=== PATIENT | male | born 1985 | race Caucasian/White ===

== ENCOUNTER 2019-12-22 06:59 | Day surgery (SDC) | payer OTHER ==
[~2019-12-22] VITALS: Ht 180.3 cm; Wt 83.3 kg
[2019-12-22 07:16] VITALS: BP 130/74; PULSE 72; TEMP 98.2
[2019-12-22 09:15] VITALS: BP 117/75; PULSE 62; TEMP 98.3
--- NOTE | 2019-12-22 09:15 | NUR ---
Patient arrives to [facility] [address] via cart, accompanied by COMPUTER SCIENCE INSTRUCTOR and CORROSION ENGINEER. He is alert and oriented, lying in the bed. He denies pain or nausea. Monitoring is applied - VSS and WNL on room air. Lights dimmed for comfort, call light in reach.
[2019-12-22 09:30] VITALS: BP 107/69; PULSE 56
--- NOTE | 2019-12-22 09:30 | NUR ---
Patient is resting comfortably. Offered and receives coffee, water, and a muffin to eat. He is sitting up in bed. VSS and WNL on room air.
[2019-12-22 09:45] VITALS: BP 122/72; PULSE 56
--- NOTE | 2019-12-22 09:45 | NUR ---
Resting comfortably in his room. Patient is tolerating PO well.
[2019-12-22 10:00] VITALS: BP 118/67; PULSE 59
--- NOTE | 2019-12-22 10:02 | NUR ---
Patient's is contacted for pickup. She is available in about 30 minutes and will text the patient when she arrives.
--- NOTE | 2019-12-22 10:30 | NUR ---
Discharge criteria has been met. Discharge instructions are discussed. He denies any questions and verbalizes understanding. PIV is removed with catheter intact and hemostasis achieved. His is going to notify him when she arrives for pickling machine operator. He changes to his clothing independently, is given more coffee, and is watching TV while he waits.
--- NOTE | 2019-12-22 11:26 | NUR ---
Patient is escorted to the exit via wheelchair by staff. He is discharged to home with ride in private vehicle at 1126.
== END 2019-12-22 11:26 | disposition home or self-care (01) ==
LOC: SDCO 06:59
DX: K62.5 Hemorrhage of anus and rectum (principal); K64.2 Third degree hemorrhoids; Z79.899 Other long term (current) drug therapy; Z20.828 Contact with and (suspected) exposure to other viral communicable diseases; Z53.8 Procedure and treatment not carried out for other reasons
CPT/HCPCS: J2250; J2405; J2704; J3010; J7120

== ENCOUNTER 2020-01-19 08:11 | Day surgery (SDC) | payer OTHER ==
[~2020-01-19] VITALS: Ht 180.3 cm; Wt 83.6 kg
[2020-01-19] VITALS (7 sets, daily range): BP systolic 120–142; BP diastolic 69–85; PULSE 47–58; TEMP 97.8–97.9
[2020-01-19] MEDS ORDERED: NORCO 325 MG-51 TAB PO (09:21)
--- NOTE | 2020-01-19 09:55 | NUR ---
Returns to room 7 per cart and is awake and alert. IV fluids infusing and site free of redness. Patient denies pain or nausea. Temp 97.8 and room air sats 100%. 4x4 dressing dry. Taking water and coffee to drink. Siderails up x2 and call light in reach.
--- NOTE | 2020-01-19 10:10 | NUR ---
Continues to deny pain or nausea.
--- NOTE | 2020-01-19 10:25 | NUR ---
Eating muffin, toast, and sipping on water and coffee. Continues to deny pain or nausea.
--- NOTE | 2020-01-19 10:40 | NUR ---
Resting without complaints of pain or nausea. IV fluids infusing. Continues to deny pain or nausea.
--- NOTE | 2020-01-19 10:55 | NUR ---
Tolerated muffin and toast. Tolerated fluids. Continues to deny pain or nausea.
--- NOTE | 2020-01-19 11:15 | NUR ---
IV to INT and and assisted up to the bathroom and gait steady. Able to void and returns to room. INT needle discontinued and patient dresses self.
--- NOTE | 2020-01-19 11:30 | NUR ---
Dismissal instructions given and signed. Patient dismissed to home driven by spouse and taken to the front door per wheelchair by Jessica RIVERA with dismissal instructions in hand.
== END 2020-01-19 11:30 | disposition home or self-care (01) ==
LOC: SDCO 08:11
DX: K64.2 Third degree hemorrhoids (principal)
CPT/HCPCS: J0690; J1100; J1885; J2405; J2704; J3010; J7120

== ENCOUNTER → 2020-09-03 | Outpatient (CLI) | payer OTHER ==
[~2020-09-03] MED LIST: NORCO 325 MG-51 TAB PO
== END ==
LOC: COL.RAD 09:52
DX: K21.9 Gastro-esophageal reflux disease without esophagitis (principal)

== ENCOUNTER 2021-11-07 06:00 | Emergency (ER) | payer OTHER ==
[~2021-11-07] VITALS: Ht 180.3 cm; Wt 84.1 kg
[2021-11-07 06:34] LABS: COLLECTION METHOD CLEAN CATCH
[2021-11-07] MEDS ORDERED: PROTONIX 40MG T40 MG PO (06:34)
[2021-11-07 06:37] LABS: BASO % 0.4 % (0.0-2.0); EOS # 0.1 K/mm3 (0.0-0.7); EOS % 1.3 % (0.0-4.0); GRAN # 2.7 K/mm3 (1.4-6.5); GRAN % 50.3 % (42.2-75.2); HEMATOCRIT 44.7 % (42.0-52.0); HEMOGLOBIN 16.7 g/dl (13.5-18.0); LYMPH # 2.2 K/mm3 (1.2-3.4); LYMPH % 39.5 % (20.0-51.0); MEAN CELL VOLUME 90 fl (80.0-100.0); MEAN CORPUSCULAR HEMOGLOBIN 34 pg (27-31); MEAN CORPUSCULAR HGB CONC 37 g/dl (33.0-37.0); MONO # 0.5 K/mm3 (0.1-0.6); MONO % 8.3 % (1.7-9.3); PLATELET COUNT 170 K/mm3 (130-400); RED BLOOD COUNT 4.95 M/mm3 (4.20-5.60); REDCELL DISTRIBUTION WIDTH-CV 12.3 % (11.5-14.5)
[2021-11-07 06:43] LABS: MUCOUS Present (NOT PRESENT); PH 7 (5-8); SQUAMOUS EPITHELIAL None Seen /hpf (0-10); URINE APPEARANCE Clear (CLEAR/HAZY); URINE BACTERIA None Seen /hpf (NONE SEEN); URINE BLOOD 1+ (NEGATIVE); URINE COLOR Yellow (YELLOW); URINE GLUCOSE Negative (NEGATIVE); URINE KETONE Negative (NEGATIVE); URINE NITRATE Negative (NEGATIVE); URINE PROTEIN(semi-quant) Negative (NEGATIVE); URINE UROBILINOGEN Negative (NEGATIVE)
[2021-11-07 07:01] LABS: ALBUMIN 4.2 gm/dL (3.5-5.0); CALCIUM 9.4 mg/dL (8.4-10.2); CREATININE, serum 1.02 mg/dL (0.72-1.25); POTASSIUM 3.9 mmol/L (3.5-4.5); TOTAL PROTEIN 6.7 gm/dL (6.2-8.1)
[2021-11-07 08:09] VITALS: BP 126/86; PULSE 67
== END 2021-11-07 08:07 | disposition home or self-care (01) ==
LOC: COL.ER 06:00
PROVIDERS: Emergency Medicine
DX: R10.31 Right lower quadrant pain (principal); R30.0 Dysuria; Z98.890 Other specified postprocedural states
CPT/HCPCS: Q9967

== ENCOUNTER 2023-05-12 07:02 | Day surgery (SDC) | payer OTHER ==
[~2023-05-12] VITALS: Ht 180.3 cm; Wt 84.4 kg
[~2023-05-12 07:02] MED LIST changes: +LR 1,000 ML IV SCH; +Ondansetron 4 MG/2 ML VIAL IV PRN; +PROTONIX 40MG T40 MG PO
[2023-05-12 07:23] VITALS: BP 145/88; PULSE 62; TEMP 97.3
[2023-05-12 09:15] VITALS: BP 123/89; PULSE 66; TEMP 97
[2023-05-12 09:30] VITALS: BP 115/88; PULSE 68
--- NOTE | 2023-05-12 09:48 | NUR ---
0915-Pt arrived via cart to [facility] , pt ambulated with assistance to recliner. Warm blanket provided. Vital signs taken, vss. Pt denies nausea or pain at this time. Report obtained from MIGUEL GREEN. Pt offered po intake at this time. Update provided to patient and/or family. 924-Pt tolerating po intake well, denies complaints. VSS. 924-Provider at bedside, procedure and plan of care reviewed, questions invited. [id number]. Discharge instructions reviewed with pt, questions invited. IV site discontinued, tip intact. Pressure held and bandage applied. Pt dressed into personal clothing. 45-Pt discharged home to [facility] via wheelchair, accompanied by family. All belongings and discharge instructions sent with pt.
== END 2023-05-12 09:45 | disposition home or self-care (01) ==
LOC: SDCO 07:02
DX: K59.00 Constipation, unspecified (principal); K62.89 Other specified diseases of anus and rectum; K64.4 Residual hemorrhoidal skin tags; R11.10 Vomiting, unspecified; R14.2 Eructation; R14.0 Abdominal distension (gaseous); Z80.0 Family history of malignant neoplasm of digestive organs; Z79.899 Other long term (current) drug therapy
CPT/HCPCS: J2704; J7120

== ENCOUNTER → 2023-12-09 | Outpatient (CLI) | payer OTHER ==
[~2023-12-09] MED LIST changes: -LR 1,000 ML IV SCH; -Ondansetron 4 MG/2 ML VIAL IV PRN
== END ==
LOC: COL.RAD 16:14
DX: Z01.89 Encounter for other specified special examinations (principal); S86.911A Strain of unspecified muscle(s) and tendon(s) at lower leg level, right leg, initial encounter